=== PATIENT | female | born 1930 | race Two or more races ===

== ENCOUNTER 2019-04-05 11:59 | Emergency (ER) | payer MEDICARE, OTHER ==
[~2019-04-05] VITALS: Ht 160 cm; Wt 74.8 kg
[~2019-04-05 11:59] MED LIST: ASPIRIN-LOW81 MG ORAL; CITALOPRAM HBR10 M1 ORAL; DONEPEZIL HCL10 M2 ORAL; MAGNESIUM CITR100 MG PO; MULTI VITAMIN1 EACH ORAL; NAMENDA10 MG ORAL; OMEGA 3 1,0001 EACH PO; PRAVASTATIN SOD20 M1 ORAL; SENNA8.6 M2 PO; TOVIAZ4 MG PO; TRAZODONE HCL50 MG ORAL; VERAPAMIL ER240 MG ORAL; VITAMIN B12-FO1 EAC1 PO; VITAMIN D250000 UNI1 ORAL; VITAMIN D32000 UNI3 PO
[2019-04-05 12:10] VITALS: BP 118/82
--- NOTE | 2019-04-05 12:10 | NUR ---
ED Nurse Note: Pt brought in by ambulance from [facility] s/p mechanical fall this morning. Pt c/o right hand pain and inability to move it. Respirations even and unlabored on room air. Vitals stable as documented.
--- NOTE | 2019-04-05 12:18 | Emergency Room Report ---
History of Present Illness General Chief Complaint: Multiple Trauma/Fall Source: Patient, Medical Record, Caregiver Present Illness HPI Patient is an 88-year-old female past medical history of Alzheimer's and hypertension who was brought into the ER for right shoulder pain. Unclear if she had a fall. Patient is alert and oriented x2 to person and time not to place. She cannot recall any falls or trauma and is a poor historian. Her caregiver is here who cannot give any further history because she was not with her earlier in the day. Patient was brought in by EMS. Medical record was reviewed. Allergies: Coded Allergies: PENICILLINS (Verified Allergy, Intermediate, 10/04/13) HIVES Patient History Limited by: other - dementia Now: No Reviewed Nursing Documentation: PMH: Agreed; PSxH: Agreed Nursing Documentation-PMH Hx Cardiac Problems: Yes Hx Hypertension: Yes Hx Cancer: No Hx Gastrointestinal Problems: No Hx Neurological Problems: Yes Hx Cerebrovascular Accident: Yes - MINI STROKES MULTIPLE-LAST EPISODE 2003 Review of Systems All Other Systems: negative except mentioned in HPI Physical Exam Vital Signs Date Time Temp Pulse Resp B/P (MAP) Pulse Ox O2 Delivery O2 Flow Rate FiO2 04/05/19 12:07 98.1 100 18 121/80 (94) 98 Room Air Sp02 EP Interpretation: reviewed, normal General Appearance: no apparent distress, alert, non-toxic, other - AAO x2 to person and time Head: normocephalic, atraumatic Eyes: bilateral eye normal inspection, bilateral eye PERRL ENT: hearing grossly normal, normal pharynx, no angioedema, normal voice Neck: full range of motion, supple/symm/no masses Respiratory: chest non-tender, lungs clear, normal breath sounds, speaking full sentences Cardiovascular #1: regular rate, rhythm, no edema Gastrointestinal: normal bowel sounds, non tender, soft, non-distended, no guarding, no rebound Musculoskeletal: other - R shoulder and upper arm ttp and on ROM, range of motion limited secondary to pain right upper arm ecchymosis, 2+ radial pulse Neurologic: alert, 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 Patient's x-ray demonstrates humeral neck fracture. I relayed this information to Dr. Issa. He is requesting Dr. Hernandez consultation. I have spoken with Dr. Hernandez from orthopedics and he will review the images and let me know if he would like the patient to have surgical intervention or just be discharged back to the extended care facility in a sling. Dr. Hernandez reviewed the images and states that the patient should be placed in a sling and to heal on its own. He states that she is not a candidate for surgery. I have re-paged Dr. Issa to inform him of this. I also updated the patient's daughter and caregiver who are at the bedside. Last Vital Signs Date Time Temp Pulse Resp B/P (MAP) Pulse Ox O2 Delivery O2 Flow Rate FiO2 04/05/19 12:07 98.1 100 18 121/80 (94) 98 Room Air Disposition: ASSISTED LIVING Condition: Stable Scripts Ibuprofen* (MOTRIN*) 600 Mg Tablet 600 MG ORAL Q8H PRN for For Pain, #30 TAB 0 Refills Prov: Mehreen García M.D. 04/05/19 Mehreen García M.D. Apr 05, 2019 12:18
--- NOTE | 2019-04-05 13:07 | Diagnostic Imaging Report ---
Indication: Headache, status post head trauma Technique: Spiral acquisitions obtained through the brain. Angled axial and coronal 5 x 5 mm slices were reconstructed. Total dose length product 992 mGycm. CTDI vol(s) 53 mGy. Dose reduction achieved using automated exposure control Comparison: None. Findings: There is age-related enlargement of the ventricles and extra axial CSF spaces. There is periventricular deep white matter low-attenuation, consistent with chronic microvascular ischemic change. 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 The calvarium is intact. Visualized sinuses are clear. There is evidence of prior bilateral ocular surgery. There is an old lacunar infarct in the left caudate head resulting in To dilatation of the frontal horn of the left lateral ventricle. Myers-white differentiation is otherwise normal. Impression: Chronic age-related changes, as described Old left basal ganglia lacunar infarct Negative for acute intracranial bleed or mass effect The CT scanner at [facility] is accredited by the [employer] and the scans are performed using protocols designed to limit radiation exposure to as low as reasonably achievable to attain images of sufficient resolution adequate for diagnostic evaluation.
[2019-04-05] MEDS ORDERED: IBUPROFEN600 MG ORAL (14:28)
--- NOTE | 2019-04-05 14:40 | NUR ---
ED Nurse Note: Called [facility] spoke with Kat pt will be going back to facility, applied arm sling braydon well. Instructions given to pt and daughter Sandra, verb understanding.
--- NOTE | 2019-04-05 14:45 | NUR ---
ED Nurse Note: Dr bellamy changed his mind to discharge pt. Informed family and pt.
--- NOTE | 2019-04-05 14:55 | NUR ---
ED Nurse Note: blood sent to lab
[2019-04-05 15:03] LABS: HEMATOCRIT 36.2 % (37.0-47.0); HEMOGLOBIN 12.4 G/DL (12.0-16.0); MEAN CORPUSCULAR VOLUME 91 FL (80-99); PLATELET COUNT 272 K/UL (150-450); RED BLOOD COUNT 3.99 M/UL (4.20-5.40); RED CELL DISTRIBUTION WIDTH 11.2 % (11.6-14.8)
--- NOTE | 2019-04-05 15:14 | Diagnostic Imaging Report ---
Indication: Pain, trauma Technique: 2 views of the right femur Comparison: none Findings: There is a comminuted impacted fracture of the proximal humeral head and neck. No humeral shaft fracture demonstrated. The bones are osteoporotic. Impression: Positive for comminuted proximal humeral fracture Findings discussed by phone with Dr. Brewer at the time of interpretation
[2019-04-05 15:17] LABS: ANION GAP 12 mmol/L (5-15); BLOOD UREA NITROGEN 23 mg/dL (7-18); CALCIUM 10.1 MG/DL (8.5-10.1); CARBON DIOXIDE 27 MMOL/L (21-32); CHLORIDE 98 MMOL/L (98-107); CREATININE 1.1 MG/DL (0.55-1.30); POTASSIUM 4.8 MMOL/L (3.5-5.1); SODIUM 137 MMOL/L (136-145)
[2019-04-05 15:22] LABS: ALANINE AMINOTRANSFERASE 26 U/L (12-78); ALBUMIN 4.1 G/DL (3.4-5.0); ALBUMIN/GLOBULIN RATIO 1.2 (1.0-2.7); ALKALINE PHOSPHATASE 78 U/L (46-116); ASPARTATE AMINO TRANSFERASE 26 U/L (15-37); BILIRUBIN,TOTAL 0.8 MG/DL (0.2-1.0)
--- NOTE | 2019-04-05 16:40 | NUR ---
ED Nurse Note: awaiting urine results before discharging per ED MD
[2019-04-05 17:09] LABS: APPEARANCE,URINE CLOUDY; BILIRUBIN, URINE 2+ (NEGATIVE); GLUCOSE, URINE (UA) NEGATIVE (NEGATIVE); KETONES,URINE 2+ (NEGATIVE); LEUKOCYTE ESTERASE ,URINE 1+ (NEGATIVE); NITRITE,URINE NEGATIVE (NEGATIVE); PH,URINE 5 (4.5-8.0); PROTEIN,URINE 2+ (NEGATIVE); UROBILINOGEN,URINE 1 MG/DL (0.0-1.0)
[2019-04-05 17:14] LABS: COLOR,URINE YELLOW
[2019-04-05 17:18] VITALS: BP 123/85
--- NOTE | 2019-04-05 17:18 | NUR ---
ER DISCHARGE NOTE: Patient is cleared to be discharged per ERMD, pt is aox3, on room air, with stable vital signs as documented. pt was given dc and prescription instructions, pt was able to verbalize understanding, pt id bandremoved. pt is able to ambulate with help from daughter. pt took all belongings. Pt discharging with daughters. Daughters to take pt back to detention.
--- NOTE | 2019-04-05 17:24 | Diagnostic Imaging Report ---
. Indication: Pain, trauma Technique: 2 views of the right shoulder Comparison: none Findings: There is a severely comminuted impacted fracture of the right humeral head and neck. No definite dislocation. The glenoid is probably intact. The bones are osteoporotic Impression: Positive for humeral head/neck fracture. Findings previously discussed by phone with Dr. Brewer
--- NOTE | 2019-04-05 21:15 | Consultation ---
DATE OF CONSULTATION: 04/05/2019 ORTHOPEDIC CONSULTATION CONSULTING PHYSICIAN: Landon Hernandez M.D. CHIEF COMPLAINT: Right shoulder pain. HISTORY OF PRESENT ILLNESS: The patient is an 88-year-old female with Alzheimer's and hypertension who was brought to the ER after a fall. She was diagnosed with right humerus fracture. Therefore, orthopedic consultation was obtained for further care and recommendation. PAST MEDICAL HISTORY: Per the intake chart. SURGICAL HISTORY: Per the intake chart. MEDICATIONS: Per the intake chart. PHYSICAL EXAMINATION: GENERAL: The patient is alert, resting comfortably on exam bed. VITAL SIGNS: Afebrile. Stable vital signs. EXTREMITIES: Right shoulder examination, she was wearing a sling. Skin is intact. Radial and ulnar pulses +2. IMAGING STUDIES: Show comminuted proximal humerus fracture with no obvious dislocation of the humeral head. ASSESSMENT: Right proximal humerus fracture. DISCUSSION: The patient is 88, has Alzheimer's and osteoporosis. What I recommend is conservative treatment. She can be in a sling for comfort and begin active range of motion. Given her Alzheimer's, it will be difficult for her to be compliant with nonweightbearing restrictions, but she should have physical therapy, occupational therapy to work on active range of motion with right elbow, wrist, and fingers to prevent any contractures, and when they start to heal, begin some passive range of motion exercises for the shoulder on a daily basis. At this point, I have had a discussion with the emergency room. I discussed with them this is nonoperative and at this point we are going to see her back in the office to treatment recommendation going forward. Landon Hernandez M.D. DR: SANJUANA JOB#: [id number] CC: .
== END 2019-04-05 17:18 | disposition home or self-care (01) ==
LOC: EDBD 11:59 → EDSEX 11:59 → EMR 12:11
DX: S42.201A Unspecified fracture of upper end of right humerus, initial encounter for closed fracture (principal); F03.90 Unspecified dementia, unspecified severity, without behavioral disturbance, psychotic disturbance, mood disturbance, and anxiety; I11.9 Hypertensive heart disease without heart failure; I10 Essential (primary) hypertension; X58.XXXA Exposure to other specified factors, initial encounter; Y93.9 Activity, unspecified; Y92.9 Unspecified place or not applicable; Z88.0 Allergy status to penicillin; Z86.73 Personal history of transient ischemic attack (TIA), and cerebral infarction without residual deficits
CPT/HCPCS: 29105; 36415; 70450; 80053; 81001; 85007; 85025; 87086; 99284